=== PATIENT | female | born 1950 | race Caucasian/White ===

== ENCOUNTER 2016-12-24 16:46 | Inpatient (IN) ==
[2016-12-24] MEDS ORDERED: ZOFRAN IV PRN (17:53)
[2016-12-24] MEDS ORDERED: ZOFRAN PO PRN (17:54)
[2016-12-24] MEDS ORDERED: NORCO-5 PO PRN (17:54)
[2016-12-24 19:45] LABS: MANUAL DIFF NEEDED? NO
[2016-12-24 19:49] LABS: BASO% 0.6 % (0.0-0.8); EOS% 2.5 % (0.0-10.0); HEMOGLOBIN 11.7 g/dL (12.0-16.0); LYMPH# 1.37 X1000 (1.2-3.4); LYMPH% 17.4 % (20.5-51.1); MCH 28.7 PG (27-31); MCHC 33.4 g/dL (33-37); MONO# 0.75 X1000 (0.11-0.59); MONO% 9.5 % (1.7-9.3); MPV 9.6 FL (7.4-10.4); PLT 372 X1000 (130-400); RBC 4.07 XMIL (4.2-5.4)
[2016-12-24 20:05] LABS: AGAP 12; ALBUMIN 4.2 g/dL (3.5-5.0); ALKALINE PHOSPHATASE 79 U/L (32-104); BUN 12 mg/dL (8-22); CALCIUM 9.7 mg/dL (8.8-10.2); CHLORIDE 98 mmol/L (98-107); COSMO 285; GOT 16 U/L (10-30); GPT 16 U/L (10-36); SODIUM 142 mmol/L (136-145); TCO2 32 mmol/L (25-35); TOTAL BILIRUBIN 0.45 mg/dL (0.20-1.00); TOTAL PROTEIN 6.6 g/dL (6.3-8.3)
[2016-12-24] MEDS: PRAVACHOL PO SCH (20:55)
--- NOTE | 2016-12-24 21:00 | Diag Imaging Result Doc PS360 ---
EXAM: CT THORAX W/CONTRAST INDICATION: colon mass TECHNIQUE: Dose reduction protocol was used. COMPARISON: None. FINDINGS: There is mild subsegmental atelectasis at the lung bases. There are a few small calcified granulomata in the right upper lobe perihilar region. The lungs are grossly clear, otherwise. There is no pleural fluid collection and no pneumothorax. There are calcified right hilar lymph nodes and a calcified mediastinal lymph node indicating prior granulomatous disease. There is lymphadenopathy involving the lower mediastinum in the periaortic region near the diaphragmatic hiatus. The largest of these nodes measures up to 1.9 x 1.8 cm axially. There is no evidence of significant mediastinal or hilar lymphadenopathy, otherwise. The heart is not enlarged. Limited views of the upper abdomen reveal multiple low-density hepatic nodules consistent with metastatic disease, assumed to be metastatic colon carcinoma given the history. There is a small right renal cyst. There is nothing to indicate local bony metastatic disease. IMPRESSION: 1.Periaortic lymphadenopathy near the diaphragmatic hiatus. 2.Multiple hepatic metastatic lesions. 3.Mild subsegmental atelectasis at the lung bases. Electronically signed by Prem Montes De Oca 12/24/2016 8:58 PM
[2016-12-25] MEDS: PRILOSEC PO SCH (06:22)
--- NOTE | 2016-12-25 06:42 | CONSULTATION ---
DATE OF CONSULTATION: 12/24/2016 ATTENDING AND REFERRING PHYSICIAN: Dr. Saab. HISTORY OF PRESENT ILLNESS: This 66-year-old female was admitted with a colon mass, liver lesions, and hydronephrosis. The patient states that she had pain last Saturday and was seen in the emergency room on Saturday where a CT scan was obtained. She states she was told she had a colon mass with liver lesions and hydronephrosis. She states she was also told she had a 4 mm stone. She states that she thinks it was on the right side because she had right-sided pain but now she states her pain is on the left side. She has no previous history of renal lithiasis. She has had no hematuria. She has an occasional urinary tract infection. She states several months ago, she was diagnosed with a urinary infection. She denies any previous urologic surgery. She states she has a family history of colon cancer and had a colonoscopy in 2014. PAST MEDICAL HISTORY: Gastroesophageal reflux disease, elevated cholesterol, hypertension. CURRENT MEDICATIONS: Losartan, omeprazole, and pravastatin. PAST SURGICAL HISTORY: Multiple breast biopsies, cholecystectomy, hysterectomy. SOCIAL HISTORY: No tobacco use. Occasional alcohol use. ALLERGIES: She is allergic to codeine. REVIEW OF SYSTEMS: Usually in good health. She denies any problems with heart disease, diabetes, strokes, seizures, recent pulmonary or bowel problems. She has had no hematochezia. PHYSICAL EXAMINATION: General: A normally developed, well-nourished, age apparent, white female, oriented in all ways and cooperative. HEENT: Normal for age. Lungs: Clear. Cardiovascular: Regular rate and rhythm. Abdomen: Protuberant, soft, nontender. No hepatosplenomegaly or masses. Normal bowel sounds. Back: No CVA tenderness. Genitourinary: Examination was deferred until surgery. Extremities: No clubbing, cyanosis, or edema. Neurologic: No focal deficits. LABORATORY EVALUATION: White count of 7.87, hemoglobin 11.7, hematocrit of 35, platelets are 372,000. Serum chemistries are not available. CT scan from [facility] was not available. IMPRESSION: 1. History of renal lithiasis (recently diagnosed). 2. History of bilateral flank pains, first right side and now left side. 3. Hydronephrosis, side not specified. 4. Colon mass with liver lesions. RECOMMENDATIONS: Renal ultrasound to evaluate for hydronephrosis. Get CT scan results from [facility]. If bilateral hydronephrosis is present, she will need cystoscopic exam and placement of bilateral double-J stents. Thank you for this consultation. cc: MD Ryan Hdz MD
--- NOTE | 2016-12-25 08:08 | Diag Imaging Result Doc PS360 ---
US RENAL 2 (RETROPER) COMPLETE - 12/25/2016 INDICATION: hydronephrosis TECHNIQUE: COMPARISON: CT chest 12/24/2016 FINDINGS: There is a small benign-appearing right renal cyst superiorly measuring 1.3 cm. No suspicious masses. No hydronephrosis. Renal sizes are normal. The right kidney measures 11.7 x 6.5 x 4.5 cm. The left kidney measures 12 x 6.1 x 5.1 cm. Cortex measures 12 mm bilaterally. The urinary bladder is normal. IMPRESSION: No acute disease. Electronically signed by Severiano Singleton 12/25/2016 8:06 AM
[2016-12-25] MEDS: HYZAAR 50/12.5 MG PO SCH (08:44)
--- NOTE | 2016-12-25 14:17 | CONSULTATION ---
DATE OF CONSULTATION: 12/25/2016 REQUESTING PHYSICIAN: Dr. Ryan Saab. REASON FOR CONSULTATION: Consult concerning possible colon cancer with metastatic disease. HISTORY OF PRESENT ILLNESS: A 66-year-old female who initially presented to [facility] on Saturday with what she thought was a kidney stone. During the workup with the CT scan. They found that she had a potential for a colonic mass. At this time, I am unable to those images since there are in an outlying facility; but, this is by report from the patient. She was seen by Dr. Saab. There was concern that potentially did have colon cancer. He admitted over to the hospital for further evaluation. She did have a CT scan done of her chest which I reviewed personally and reviewed the report that shows Tripp aortic lymphadenopathy, diaphragmatic hiatus, and multiple hepatic lesions suspicious for metastatic disease in the context of her colon cancer . At this time, patient does report her most recent colonoscopy was in 04/[address] Alex Kraus and report was normal. The patient denies any kind of change in her bowel habits or blood in her stool. She also report some weight loss but it sounds like it is intentional. Otherwise, everything had been normal except the abdominal pain which initially presented to the emergency department. At this time, she has no significant complaints. PAST MEDICAL HISTORY: Hypertension, hyperlipidemia, and acid reflux. PAST SURGICAL HISTORY: Multiple breast biopsies, cholecystectomy, hysterectomy. ALLERGIES: Codeine. HOME MEDICATIONS: Reviewed. Current MAR reviewed. FAMILY HISTORY: Positive for breast and rectal cancer in her mother and lung cancer in her father and breast cancer in her sister. SOCIAL HISTORY: Denies alcohol, tobacco, or illicit drugs. REVIEW OF SYSTEMS: A full 10-point review of systems obtained and negative as specified in HPI. PHYSICAL EXAMINATION: Vital Signs: Patient is currently afebrile. Her vital signs stable. General: No acute distress. Alert, oriented, female, looks stated age. HEENT: Normocephalic, atraumatic. Pupils equal, round, react to light. Mucous membranes moist. Oropharynx benign. Neck: Supple. Trachea midline. Cardiovascular: Regular rate and rhythm. Lungs: Grossly clear. Abdomen: Soft, nontender, nondistended. Extremities: Moves all extremities. Neurologic: Grossly intact. Skin: No signs of jaundice. Vascular: All extremities perfused. LABORATORY: White blood cell count is 7, hematocrit 35, platelet count 372,000 remainder of labs reviewed. CT scan of the chest independently reviewed and radiology report reviewed. ASSESSMENT AND PLAN: A 66-year-old female with potential for metastatic colon cancer. 1. Metastatic colon cancer. At this time, Dr. Tony has been consulted and I agree with colonoscopy to evaluate this reported mass from an outlying facility CT scan and get a biopsy, this would determine the next step. I suspect that if this is truly a colon cancer that she does have at least metastatic disease to her liver which would likely make her a nonoperative candidate and she might need chemotherapy in the beginning. I have ordered a CEA level to have for baseline marker. I will continue to follow. I will make further recommendations once the colonoscopy is done at this time, patient is stable. cc: MD Ryan Rodriguez MD
--- NOTE | 2016-12-25 15:26 | CONSULTATION ---
DATE OF CONSULTATION: 12/25/2016 REASON FOR REFERRAL: Possible mass in the colon. HISTORY OF PRESENT ILLNESS: This is a 66-year-old white female who reported onset of symptoms Saturday. She had severe abdominal pain. She went to [facility] in [employer]. She states lab work showed elevated white blood cell count. She was given antibiotics. She continued to get worse. On Saturday she went to [facility]. A CT scan was done showing a possible mass in the colon with liver lesions and hydronephrosis. She was also told she had a kidney stone. She reports history of frequent urinary tract infections over the last month. She has been treated with several antibiotics as an outpatient. After her CT scan on Saturday she was told to make an appointment with Dr. Saab. She saw him yesterday. He sent her to [facility] for admission and further evaluation. She denies any visible blood in the stool or black stool. She denies constipation. She usually has a bowel movement daily. Her last colonoscopy was in 2014 that showed diverticulosis with no evidence of colon polyps. PAST MEDICAL HISTORY: GERD, hypercholesterolemia, hypertension. PAST SURGICAL HISTORY: Multiple breast biopsies, cholecystectomy and partial hysterectomy. ALLERGIES: To codeine causing swelling and rash. HOME MEDICATIONS: Hydrochlorothiazide/losartan 50/12.5 daily, pravastatin 40 mg every night, Prilosec 40 mg daily. SOCIAL HISTORY: Denies tobacco, reports rare alcohol use. She is . REVIEW OF SYSTEMS: Per HPI. PHYSICAL EXAM: Vital Signs: Temperature 98.6 degrees, pulse 81, respirations 18, blood pressure 128/69. General: Patient is awake, alert, no acute distress. HEENT: Normocephalic, atraumatic. Pupils equal, round, reactive to light. Sclerae nonicteric. Cardiovascular: Regular rate and rhythm. Respiratory: Lung sounds clear bilaterally. Abdomen: Soft, nontender. Extremities: No lower extremity edema noted. Neurologically: Cranial nerves 2-12 grossly intact. Patient is awake and alert to person, place, and time. DIAGNOSTIC RESULTS: Laboratory. Hematology. White count 7.87, hemoglobin 11.7, hematocrit 35.0, MCV 86.0, platelet 372,000. Chemistry. Sodium 142, potassium 3.0, chloride 98, CO2 of 32, BUN 12, creatinine 0.8, glucose 139, total bilirubin 0.45, AST 16, ALT 16, alkaline phosphatase 79. CEA 1278. She had a CT scan at [facility], I do not see those results. She has had an ultrasound done today. ASSESSMENT AND PLAN: 1. Abdominal pain. 2. Frequent urinary tract infections. 3. Renal lithiasis seen by Dr. Strange. 4. Hydronephrosis. 5. Scan findings consistent with colon mass with liver lesions. PLAN: Continue supportive care. Symptomatic treatment. She has had a renal ultrasound today. We will plan for a colonoscopy tomorrow. Further plans to be made according to findings. I have discussed the procedure along with benefits and risks with the patient and her and she wishes to proceed. I have discussed this case with Dr. Kraus. Thank you for this consultation. Dictated by AUGUST Lowe for Alex Kraus MD cc: AUGUST Mota MD Sammy Becdach, MD MTDD
[2016-12-25] MEDS ORDERED: GOLYTELY PO ONE (18:00)
[2016-12-25] MEDS: PRAVACHOL PO SCH (20:16)
[2016-12-26] MEDS: PRILOSEC PO SCH (06:12)
--- NOTE | 2016-12-26 06:46 | PROGRESS NOTE ---
DATE: 12/26/2016 SUBJECTIVE: Patient without issues. She is tolerating her bowel prep. Plan for colonoscopy today. OBJECTIVE: Vital Signs: Patient is currently afebrile. Her vital signs are stable. General Examination: No acute distress. HEENT: Normocephalic and atraumatic. Pupils equal, round, react to light. Mucous membranes moist. Oropharynx benign. Neck: Supple. Trachea midline. Cardiovascular: Regular rate and rhythm. Lungs: Grossly clear. Abdomen: Soft, nondistended. Extremities: Moves all extremities. Neurologic: Grossly intact. Skin: No signs of jaundice. Vascular: All extremities perfused. Laboratory: Of note, patient's CEA was over 1000. ASSESSMENT/PLAN: A 66-year-old, female with likely colon cancer with liver metastasis. Likely colon cancer with liver metastasis. At this time, with her CEA being high and the radiographic imaging thus far, the concern for colon cancer is very high. She does have a colonoscopy scheduled for today. I think, given her overall clinical appearance with the multiple liver metastases and the periaortic lymph nodes that she is likely not a surgical candidate and will likely benefit from chemotherapy first. We will continue to follow while she is here. cc: MD Ryan Rodriguez MD
[2016-12-26] MEDS: HYZAAR 50/12.5 MG PO SCH ×2 (09:45→18:39)
[2016-12-26] MEDS ORDERED: DIPRIVAN 1% ONE ×2 (17:15→17:28)
[2016-12-26] MEDS: PRAVACHOL PO SCH (20:07)
[2016-12-26] MEDS: RESTORIL PO PRN (21:21)
--- NOTE | 2016-12-27 04:24 | OPERATIVE NOTE ---
PROCEDURE DATE: 12/26/2016 PROCEDURE PERFORMED: Colonoscopy and biopsy. MEDICATION USED: MAC as per as per Anesthesia. SCOPE: Olympus [id number]. PREOPERATIVE DIAGNOSIS: Abnormal CT scan. Possible mass in the colon. POSTOPERATIVE DIAGNOSIS: Occluding tumor in the ascending colon, biopsied. HISTORY: This is a 66-year-old white female, admitted to the hospital with abdominal pain. CT scan has shown evidence of possible tumor in the colon. Endoscopy was done for diagnosis and biopsy. DESCRIPTION OF PROCEDURE: Informed consent obtained from the patient. The procedure, risks, benefits, alternatives were explained in layman's terms. She understood. All the pertinent questions were answered. The patient was brought to the endoscopy unit and was premedicated as per Anesthesia. After adequate sedation, digital exam was performed, which was normal. The scope was then gently introduced into the rectum and advanced under direct vision through the parts of the colon, all the way up to the right side of the colon, at which time, I saw a circumferential mass in the ascending colon. The stricture was tight. The scope could not be passed through the stricture, and advance was not possible. At that point, I went ahead and proceeded with biopsy. Multiple biopsies were obtained for diagnostic purposes. The scope was then withdrawn, paying attention to details. Preparation was good. The other parts of colon, did not reveal any polyps, tumors, cancers. However, in the left colon, there was a significant number of diverticula seen. These did not show any evidence of diverticulitis or diverticular bleeding. Retroflex view in the rectum revealed no pathology. The scope was then removed. Patient tolerated the procedure well. No complications noted. Patient was then transferred to the recovery area in a stable condition. Of note, I did use a sclerotherapy needle and injected SPOT at the site of the tumor to stuart the area for future reference. IMPRESSION: Circumferential tumor and stricture in the ascending colon, biopsied, and the SPOT injected. RECOMMENDATION: Patient will need surgical intervention or placement of a colonic stent if possible, while we await for biopsy, and depending on the findings, further plan made. Case was discussed with her . cc: MD Ryan Whipple MD
[2016-12-27] MEDS: PRILOSEC PO SCH (06:25)
--- NOTE | 2016-12-27 07:49 | PROGRESS NOTE ---
DATE: 12/27/2016 SUBJECTIVE: Reviewed operative note from Dr. Kraus from colonoscopy yesterday. By report, there is a circumferential mass in the ascending colon which there was a stricture that he could not pass the scope through. The patient is otherwise doing okay. OBJECTIVE: Vital Signs: Patient is currently afebrile. Her vital signs are stable. General Examination: No acute distress. No major issues. Alert, interactive, female, looks stated age. HEENT: Normocephalic, atraumatic. Pupils equal, round, react to light. Mucous membranes moist. Oropharynx benign. Neck: Supple. Trachea midline. Cardiovascular: Regular rate and rhythm. Lungs: Grossly clear. Abdomen: Soft, nontender, nondistended. Extremities: Moves all extremities. Neurologic: Grossly intact. Skin: No signs of jaundice. Vascular: All extremities perfused. Laboratory: None from this morning. ASSESSMENT AND PLAN: A 66-year-old, female with likely metastatic colon cancer. Metastatic colon cancer. At this time, given her radiographic imaging, her colonoscopy, and her elevated CEA, I suspect this is a high possibility of a colon cancer. By report from Dr. Kraus, this is a near occluding tumor in her ascending colon. Options at this point include resection of the strictured area for palliation versus chemotherapy up front to see we can shrink this. I will opt to discuss with Dr. Kraus and Dr. Saab on these 2 options. I will potentially be able to do either on Saturday but we will need to see what their recommendations are. This was all extensively discussed with the and the who were both in the room. I answered all questions they had currently. Again, I will try to discuss with Dr. Kraus and Dr. Saab on the best course of action for the patient. We will follow up with their recommendations. cc: MD Ryan Rodriguez MD
[2016-12-27] MEDS: HYZAAR 50/12.5 MG PO SCH (08:37)
[2016-12-27] MEDS: NS + KCL 20 MEQ 1,000 ML IV SCH (20:55)
[2016-12-27] MEDS: PRAVACHOL PO SCH (20:55)
[2016-12-27] MEDS: RESTORIL PO PRN (21:02)
[2016-12-28 00:57] LABS: MANUAL DIFF NEEDED? NO
[2016-12-28 00:58] LABS: BASO% 0.9 % (0.0-0.8); EOS# 0.53 X1000 (0.0-0.7); EOS% 6.3 % (0.0-10.0); HEMATOCRIT 34.9 % (37.0-47.0); HEMOGLOBIN 11.8 g/dL (12.0-16.0); LYMPH# 1.74 X1000 (1.2-3.4); LYMPH% 20.6 % (20.5-51.1); MCH 28.6 PG (27-31); MCHC 33.8 g/dL (33-37); MCV 84.5 FL (81-99); MONO# 0.96 X1000 (0.11-0.59); MONO% 11.3 % (1.7-9.3); MPV 9.1 FL (7.4-10.4); NEUT% 60.9 % (42.2-75.2); PLT 348 X1000 (130-400); RBC 4.13 XMIL (4.2-5.4)
[2016-12-28 01:23] LABS: AGAP 12; ALKALINE PHOSPHATASE 76 U/L (32-104); BUN 7 mg/dL (8-22); CHLORIDE 99 mmol/L (98-107); COSMO 280; GOT 17 U/L (10-30); GPT 21 U/L (10-36); POTASSIUM 3.2 mmol/L (3.5-5.1); SODIUM 141 mmol/L (136-145); TCO2 30 mmol/L (25-35); TOTAL BILIRUBIN 0.42 mg/dL (0.20-1.00); TOTAL PROTEIN 6.5 g/dL (6.3-8.3)
[2016-12-28] MEDS: PRILOSEC PO SCH (06:32)
[2016-12-28 06:44] LABS: AGAP 13; BUN 8 mg/dL (8-22); CHLORIDE 99 mmol/L (98-107); COSMO 282; POTASSIUM 3.5 mmol/L (3.5-5.1); SODIUM 142 mmol/L (136-145); TCO2 30 mmol/L (25-35)
[2016-12-28] MEDS ORDERED: INVANZ 1 GM/NS 1 GM/50 ML IVPB ONE (09:33)
[2016-12-28] MEDS ORDERED: DIPRIVAN 1% ONE (09:42)
[2016-12-28] MEDS ORDERED: FENTANYL ONE (09:43)
[2016-12-28] MEDS ORDERED: XYLOCAINE-MPF 2% ONE (09:44)
[2016-12-28] MEDS ORDERED: QUELICIN (DOSE) ONE (09:46)
[2016-12-28] MEDS ORDERED: EPHEDRINE ONE (10:46)
[2016-12-28] MEDS ORDERED: ROBINUL ONE (10:55)
[2016-12-28 11:23] LABS: URINE MICRO REVIEW NEEDED? NO; URINE SOURCE CATH
[2016-12-28] MEDS ORDERED: OFIRMEV 1000 MG/ISOTONIC SOLN 1,000 MG/100 ML BOTTLE ONE (11:25)
[2016-12-28 11:31] LABS: BILIRUBIN URINE NEGATIVE (NEGATIVE); BLOOD URINE NEGATIVE (NEGATIVE); COLOR YELLOW; GLUCOSE URINE NEGATIVE (NEGATIVE); LEUKOCYTES URINE NEGATIVE (NEGATIVE); NITRITE URINE NEGATIVE (NEGATIVE); PROTEIN URINE NEGATIVE (NEGATIVE); TURBIDITY URINE CLEAR (CLEAR); UR EPITHELIAL CELLS <10 /HPF (<10); URINE BACTERIA NEGATIVE /HPF; URINE RBC <10 /HPF (<10); URINE WBC <10 /HPF (<10); UROBILINOGEN URINE NORMAL (NORMAL)
[2016-12-28] MEDS ORDERED: DECADRON ONE (11:34)
[2016-12-28] MEDS ORDERED: ZOFRAN ONE (11:34)
[2016-12-28] MEDS ORDERED: SODIUM CHLORIDE 0.9% 10 ML ONE (11:56)
[2016-12-28] MEDS ORDERED: MARCAINE 0.25% PF ONE (11:56)
[2016-12-28] MEDS ORDERED: EXPAREL 1.3% ONE (12:00)
[2016-12-28] MEDS ORDERED: NEOSTIGMINE ONE (12:21)
[2016-12-28] MEDS ORDERED: DILAUDID PCA VIAL ONE (13:13)
[2016-12-28] MEDS ORDERED: D5 1/2 NS + KCL 20 MEQ 1,000 ML ONE (13:13)
[2016-12-28] MEDS: DILAUDID ONE ×5 (13:15→15:04)
[2016-12-28] MEDS ORDERED: DILAUDID PCA VIAL IV PRN (13:20)
[2016-12-28] MEDS ORDERED: ZOFRAN IV PRN (13:20)
[2016-12-28] MEDS ORDERED: NARCAN IV PRN (13:20)
[2016-12-28] MEDS: HYZAAR 50/12.5 MG PO SCH (14:55)
[2016-12-28] MEDS: NS + KCL 20 MEQ 1,000 ML IV SCH (14:56)
[2016-12-28] MEDS ORDERED: NORCURON ONE (15:01)
[2016-12-28] MEDS: LR 1,000 ML IV SCH (15:02)
--- NOTE | 2016-12-28 15:15 | OPERATIVE NOTE ---
PROCEDURE DATE: 12/28/2016 PREOPERATIVE DIAGNOSIS: Metastatic ascending colon cancer, near obstructing. POSTOPERATIVE DIAGNOSIS: Metastatic ascending colon cancer, near obstructing. PRINCIPAL PROCEDURE: Open right hemicolectomy. SURGEON: Myesha Small MD. [employer] INTELLIGENCE OFFICER CHIEF: Ismael Mayo MD. ANESTHESIA: General, in addition to a TAP block after surgery. ESTIMATED BLOOD LOSS: 100 mL. DRAINS: None. INDICATIONS: Ms. Anne Pal is a 66-year-old white female, who is a patient of Dr. Saab and Dr. Kraus. She presented to [facility] with left-sided abdominal pain, and a CT scan of her abdomen and pelvis was performed. She had a kidney stone on the left, which could have been the cause of her symptoms, but the CT documented an ascending colon cancer metastatic to the liver and lymph nodes. She had been hospitalized for several days at [facility]. She has undergone colonoscopy per Dr. Kraus, which documented a near obstructing ascending colon cancer. We discussed surgical treatment options because of the near obstructing tumor, and have decided on resection with primary anastomosis. FINDINGS: She had a bulky near obstructing tumor in the ascending colon. The muscle of the cecum was thickened, probably because this tumor was near-obstructing. It extended through the wall and into the lymph nodes of the right colic vessels down to their base. It was not adhered to any near structures in the abdomen. She had diffuse disease in both lobes of the liver, and she may have had a peritoneal stud that was palpable, but this was small, and it was up near the liver. The rest of the peritoneum appeared to be normal on palpation. DESCRIPTION OF PROCEDURE: The patient was brought to the operating room. She has already undergone a bowel prep during this hospitalization. She received IV Invanz. Received general anesthesia, was intubated. Chowdary catheter tube was placed. Her abdomen was prepped and draped within the sterile field. Then, I used an Ioban on the skin. We made a midline incision with a 10-blade scalpel. This incision was carried down through the skin and subcutaneous tissue to the midline fascia, which we carefully incised within the midline. We used a large wound protector for retraction, and to protect our midline incision. We explored the abdomen with the findings above, and then we began mobilizing the right colon. The tumor was in the ascending part of the colon. Dr. Mayo held the right colon medially and superiorly, and I used the cautery to mobilize the peritoneum along the right paracolic gutter. We used the cautery and blunt dissection to mobilize the right colon up into our midline wound, around through the transverse colon. We identified the duodenum and preserved it, and completely mobilized all the mesentery of the right colon and the proximal transverse colon to the middle colic vessels. We transected the greater omentum at our transection point of the transverse colon. We used a CHEKO stapler to come across the ileum, and we used a reload of this blue load CHEKO stapler to come across the transverse colon, preserving the middle colic vessels. We then used the cautery and Gin clamps to transect the mesentery down to the right colic vessels. When we encountered vessels in the mesentery, we ligated them with 3-0 and 2-0 silk ties. We dissected all the way down to the takeoff of the right colic vessels, because along this vessel there were numerous involved lymph nodes. At the base of this vessel we used a Gin clamp to clamp the vessels. We divided these vessels, and I used a 2-0 suture ligature to control the right colic vessel at its base. The specimen was removed from the field, and we decided to perform an end ileum to end transverse colon, double- layer sewn, anastomosis. I placed the posterior row, which were 3-0 popoff silk stitches within the serosa. We excised the staple line using the cautery. I used a double-armed 3-0 Vicryl stitch to reinforce the posterior layer with an interlocking running stitch, which was continued as a Rosa stitch on the anterior wall of our anastomosis. We reinforced the inverted Denver stitch with interrupted 3-0 Lembert stitches, which were silk. We had excellent blood supply at our anastomosis. There was no tension on this anastomosis, and the caliber of the anastomosis was satisfactory. We reapproximated the defect of the mesentery with interrupted 3-0 silk stitches. We thoroughly irrigated out our area of operation with warm saline. It was removed with suction. There was no evidence of ongoing bleeding. We were happy with the way the surgery went. We placed the bowel back in its anatomically correct position. We placed the greater omentum over the surface of the bowel, and we closed our midline wound in several layers. We reapproximated the peritoneum with a running 0 Vicryl stitch. We reapproximated the fascia with a running #1 Maxon stitch. Again, we irrigated the wound and closed the skin with a skin clip trimming caser. It must be noted that Dr. Darrell Mayo was present throughout the operation. His presence was necessary to help dissect this bulky ascending tumor from the retroperitoneum. He also helped with the end-to-end anastomosis and closure of the midline fascia. At the end of the procedure, Anesthesia was present for a TAP block for postoperative pain control. Plans are for her to go to the recovery room, and then return to the floor. I spoke with her family after the procedure. cc: MD Ryan White MD
[2016-12-28] MEDS: TORADOL IV SCH ×2 (15:53→20:13)
[2016-12-28] MEDS: OFIRMEV 1000 MG/ISOTONIC SOLN 1,000 MG/100 ML BOTTLE IV SCH ×2 (18:30→22:56)
[2016-12-28] MEDS: PRAVACHOL PO SCH (20:13)
[2016-12-28] MEDS: PERIDEX MT SCH (20:13)
[2016-12-29] MEDS: TORADOL IV SCH ×2 (02:25→10:46)
[2016-12-29] MEDS: D5 1/2 NS + KCL 20 MEQ 1,000 ML IV SCH ×3 (02:26→15:55)
[2016-12-29] MEDS: PRILOSEC PO SCH ×2 (05:55→06:35)
[2016-12-29] MEDS: OFIRMEV 1000 MG/ISOTONIC SOLN 1,000 MG/100 ML BOTTLE IV SCH ×4 (05:55→23:30)
[2016-12-29] MEDS: PERIDEX MT SCH ×3 (10:46→23:30)
[2016-12-29] MEDS: HYZAAR 50/12.5 MG PO SCH (10:47)
[2016-12-29] MEDS: LR 1,000 ML IV SCH (13:30)
[2016-12-29] MEDS: TORADOL PO SCH ×2 (13:30→19:36)
[2016-12-29] MEDS: PRAVACHOL PO SCH ×2 (19:36→23:30)
[2016-12-30] MEDS: TORADOL PO SCH ×4 (01:57→20:53)
[2016-12-30] MEDS: OFIRMEV 1000 MG/ISOTONIC SOLN 1,000 MG/100 ML BOTTLE IV SCH ×2 (05:29→07:45)
[2016-12-30] MEDS: PRILOSEC PO SCH ×2 (05:29→07:45)
[2016-12-30] MEDS: D5 1/2 NS + KCL 20 MEQ 1,000 ML IV SCH (06:33)
[2016-12-30] MEDS: HYZAAR 50/12.5 MG PO SCH (08:51)
[2016-12-30] MEDS: PERIDEX MT SCH ×2 (08:51→20:53)
--- NOTE | 2016-12-30 09:06 | PROGRESS NOTE ---
DATE: 12/30/2016 SUBJECTIVE: The patient is doing well. She denies pain, nausea, or vomiting. She is passing gas and tolerating a liquid diet. OBJECTIVE: Vital Signs: She is afebrile. Vital signs are stable. General: She is alert and oriented x4. No acute distress. CV: Regular rate and rhythm. Respiratory: No work of breathing. Gastrointestinal: Soft and nondistended. No hernias. Her incision is clean, dry, and intact. She does have bowel sounds. She is minimally tender. ASSESSMENT/PLAN: A 66-year-old female, 2 days status post right colectomy. She is coming along fairly well. I will advance her diet today and discontinue her intravenous fluids. We will convert her to oral pain medicine and get her up and walking around today. She will likely be ready for discharge tomorrow. cc: MD Ryan Henderson MD
[2016-12-30] MEDS: PRAVACHOL PO SCH (20:53)
[2016-12-31] MEDS: TORADOL PO SCH ×2 (01:20→08:04)
[2016-12-31] MEDS: PRILOSEC PO SCH ×2 (05:11→06:11)
[2016-12-31 07:27] VITALS: BP 147/79
--- NOTE | 2016-12-31 07:43 | DISCHARGE SUMMARY ---
ADMISSION DATE: 12/24/2016 DISCHARGE DATE: 12/31/2016 ADMITTING DIAGNOSES: 1. Metastatic colon cancer. 2. History of kidney stones. DISCHARGE DIAGNOSES: 1. Metastatic colon cancer. 2. History of kidney stones. PRINCIPAL PROCEDURE: Colonoscopy per Dr. Kraus on 12/26/2016. Open right hemicolectomy by myself on 12/28/2016. DISCHARGE DISABILITY: Full. DISCHARGE DISPOSITION: She will return to our outpatient offices next week for recheck and skin staple removal. DISCHARGE MEDICATIONS: She is to return to her home medications. HOSPITAL COURSE: Ms. Anne Pal is a 66-year-old white female who lives in [place], and presented to the ER in [facility] with left-sided pain. Part of her evaluation was a CT scan of her abdomen and pelvis, which documented a left kidney stone, but also an ascending colon mass with metastases to the liver. She was admitted by Dr. Saab, and Dr. Gómez Strange and Dr. Mayo were consulted, in addition to Dr. Kraus. Dr. Kraus performed a colonoscopy, which documented a near-obstructing colon cancer in the ascending colon. CT scan from [facility] did suggest metastases to the liver. She asked that I evaluate her, and we went over surgical treatment options, and decided on an open right hemicolectomy for near-obstructing ascending colon cancer. On 12/28/2016, she underwent that operation. We were able to resect this tumor, which was obviously metastatic to the liver. We felt the surgery went well. No drains were left. We did not use an NG tube. She did have a Chowdary catheter tube in place. Over the weekend, the catheter was removed, and her diet was advanced to a soft diet, and it was felt safe to discharge her to her home on postop day 3, under the care of her . She lives in [place]. At discharge, her incision was healing well, she was up walking around in the room, she was tolerating a diet, and she had had some loose stools. She knows to contact me with any problems. Otherwise, I will see her next week for followup. cc: MD Ryan White MD
[2016-12-31] MEDS: PERIDEX MT SCH (08:04)
[2016-12-31] MEDS: HYZAAR 50/12.5 MG PO SCH (08:04)
--- NOTE | 2017-01-02 09:23 | DISCHARGE SUMMARY ---
ADMISSION DATE: 12/24/2016 DISCHARGE DATE: 12/31/2016 ADMITTING PHYSICIAN: Ryan Saab MD DISCHARGE PHYSICIAN: Ryan Saab MD DIAGNOSIS: Metastatic colon cancer. DISCHARGE DIAGNOSIS: Metastatic colon cancer. HISTORY OF PRESENT ILLNESS AND HOSPITAL COURSE: Ms. Anne Pal is a pleasant 66-year-old female, known to us with a history of hypertension, dyslipidemia, and gastroesophageal reflux disease. The patient presented to [facility] secondary to abdominal pain on 12/22/2016, where she underwent CT of her abdomen and pelvis. She was found to have a primary colonic malignancy of the ascending colon with lymph nodes and probable hepatic metastases. The patient's last colonoscopy was in [address] Kraus and was negative. The patient denies any significant weight loss. She denies fever, chills, or night sweats. Upon presentation to the clinic on admitting date, the patient was admitted to [facility] for colonoscopy with Dr. Kraus and consultation with Dr. Mayo. Colonoscopy confirmed a near obstructing colon cancer in the ascending colon. The patient ultimately underwent a right open hemicolectomy for near obstructing ascending colon cancer on 12/28/2016. The tumor was able to be resected. It was obvious at that time that metastasis to the liver had occurred. The patient improved with advancement of diet postoperative and was discharged home on postoperative day 3. She will follow up with in clinic with Dr. Saab for discussion of treatment plan and options. The patient was deemed appropriate for discharge and was discharged on said date. The above reflects the history, exam, assessment, and plan of Dr. Saab. Dictated by AUGUST Cerda for Ryan Saab MD cc: AUGUST Cerda MD
== END 2016-12-31 09:03 | disposition home or self-care (01) ==
LOC: DIRADM 16:46 → 3N 17:08 → 4N 12-28 14:32
PROVIDERS: ADMIT Internal Medicine Hematology & Oncology; ATTEND Internal Medicine Hematology & Oncology